=== PATIENT | female | born 1975 | race Caucasian/White ===

== ENCOUNTER 2020-01-27 12:14 | Emergency (ER) | payer OTHER, SELFPAY ==
[2020-01-27 12:29] VITALS: BP 158/100; PULSE 94; RESP 16; TEMP 37; O2SAT 100
--- NOTE | 2020-01-27 12:46 | ED.EXTPRO ---
HPI - Extremity Problem General Chief complaint: Extremity Problem,Nontraumatic Stated complaint: arm pain Time Seen by Provider: 01/27/20 12:46 Source: patient Mode of arrival: ambulatory Limitations: no limitations History of Present Illness HPI Narrative: Jazzmine Elizabeth is a 44 yo female with no PMH comes to express care with bilateral arm pain- thinks it is from sleep position. She had her hands behind her neck for most of the night and this morning when she woke up was on able to move initially and since that time anytime that she picks up her arms are makes a deliberate movement there is initially some sharp pain; denies any tenderness but complains primarily of bilateral bicep pain, rates the initial pain on movement as being as high as 6-8 was able to perform all function has no loss of strength BP is running high according to patient recently, states she has whitecoat syndrome and that every time she goes to her doctor's office her blood pressure appears to be elevated somewhat Related Data Allergies Allergy/AdvReac Type Severity Reaction Status Date / Time No Known Allergies Allergy Unknown Unverified 07/28/04 17:17 NKA Allergy Unknown Uncoded 08/01/02 13:36 [email or web address] Allergy Unknown Uncoded 08/01/02 13:36 Review of Systems Review of Systems: Narrative: CONSTITUTIONAL: Denies fever, chills, sweats. EYES: Denies visual changes, redness, discharge. ENT: Denies rhinorrhea, congestion, sore throat, otalgia. CARDIOVASCULAR: Denies chest pain, palpitations, edema. RESPIRATORY: Denies dyspnea, wheezing, cough GASTROINTESTINAL: Denies abdominal pain, nausea, vomiting, diarrhea. GENITOURINARY: Denies dysuria, hematuria, abnormal discharge SKIN: Denies rash or itching. NEUROLOGIC: Denies numbness, or focal weakness. PSYCHIATRIC: Denies anxiety or depression. Bilateral upper arm pain with movement-able to do full range of motion but not without pain PMFSH Past Medical History Medical History No acute medical problems Family History Family History Other Hypertension Social History Social History (Updated 01/27/20 @ 12:58 by Marline Barnes CNP) Smoking status: Never smoker Alcohol intake: current Gender identity (if verbalized by the patient): Female Comments At time of signature, I agree with nursing past medical, surgical, social and family history. There is no relevant family history pertinent to the presenting complaint. Exam Narrative: Exam Narrative: GENERAL: This is a well-nourished, well-developed patient, in moderate distress. HEAD: normocephalic, atraumatic. EYES: Sclera clear/white. Vision is grossly intact. EARS: External ears normal. Hearing grossly intact. NOSE: External nose normal without nasal discharge, nares without redness, no rhinorrhea. THROAT: Mucous membranes moist, posterior pharynx NECK: Neck supple, non-tender CARDIOVASCULAR: Regular rate and rhythm without murmurs, gallops, or rubs. RESPIRATORY: Clear to auscultation. Breath sounds equal bilaterally. No wheezes, rales, or rhonchi. GASTROINTESTINAL: Abdomen soft, SKIN: warm, intact with no suspicious lesions or rash, good texture and turgor. NEURO: awake, alert, and oriented to person, place and time. There were no obvious focal neurologic abnormalities. Steady gait EXTREMITIES: Normal range of motion. Bilateral bicep pain with full range of motion of arms pain is sharp with initial movement but is constant regardless of position worse when hands are forward up at 90 degrees at side, no loss of strength BACK: Nontender without deformity Course Course Emergency Course: Patient states slipped on back with arms behind neck throughout the night and could not move when she woke up this morning Able to move arms on command-discussed use of heat and baclofen-to push fluids today -patient to follow-up with primary care physician
--- NOTE | 2020-01-27 13:17 | PC.NURSE ---
episode of diaphoresis at discharge and and feeling weak 150/90 80 20 refused to go to the ER. in room and refuses again discahrged with
== END 2020-01-27 13:17 | disposition home or self-care (01) ==
PROVIDERS: Emergency Provider Nurse Practitioner; PCP Internal Medicine
DX: M79.622 Pain in left upper arm (principal); M79.621 Pain in right upper arm
CPT/HCPCS: 99213; G0463

== ENCOUNTER 2020-02-07 10:15 | Outpatient (CLI) | payer OTHER, SELFPAY ==
[2020-02-07 10:37] LABS: Hematocrit 34.3 % (37.0-47.0); Hemoglobin 11.3 g/dL (12.0-15.0); Mean Corpuscular HGB Conc 32.9 g/dl (32-36); Mean Corpuscular Hemoglobin 30.9 pg (26-34); Mean Corpuscular Volume 93.7 fl (80-100); Mean Platelet Volume 8.8 fl (7.4-10.4); Platelet Count Result 191 k/mm3 (150-375); Red Blood Count 3.66 M/mm3 (4.2-5.4); Red Cell Distribution Width 17.6 % (11.5-14.5); White Blood Count 13.6 K/mm3 (4.5-10.0)
[2020-02-07 11:10] LABS: Atypical Lymphocytes Present; Blastocytes 3 %; Lymphocytes Absolute Manual 6.52 K/mm3 (1.1-4.5); Metamyelocytes Percent 8 %; Monocytes Absolute Manual 0.54 K/mm3 (0.1-0.90); Monocytes Percent Manual 4 % (3-9); Myelocytes Percent 29 %; Neutrophils Percent Manual 5 % (46-73); Nucleated Red Blood Cells 5 %; Platelet Estimate Adequate (Adequate); Promyelocytes Percent 3 %; Total Cells Counted 100
[2020-02-07 12:32] LABS: Alanine Aminotransferase 65 U/L (4-35); Albumin Level 4.3 g/dL (3.5-5.1); Alkaline Phosphatase 102 U/L (38-126); Anion Gap 13 mmol/L (8-16); Aspartate Amino Transferase 49 U/L (14-36); Bilirubin,Total 0.4 mg/dL (0.2-1.3); Blood Urea Nitrogen 17 mg/dL (7-17); Calcium 9.3 mg/dL (8.4-10.2); Carbon Dioxide 26 mmol/L (22-30); Chloride 100 mmol/L (98-107); Estimated Glomerular Filt Rate > 60; Glucose 114 mg/dL (65-105); Lactate Dehydrogenase 1432 U/L (313-618); Potassium 3.5 mmol/L (3.4-5.0); Sodium 139 mmol/L (137-145)
== END 2020-02-07 10:16 | disposition home or self-care (01) ==
LOC: ANHLAB 10:16
PROVIDERS: PCP Internal Medicine; Visit Provider Internal Medicine Hematology & Oncology
DX: C95.00 Acute leukemia of unspecified cell type not having achieved remission (principal)
CPT/HCPCS: 36415; 80053; 83615; 85025